=== PATIENT | male | born 1955 | race Two or more races ===

== ENCOUNTER 2021-05-19 06:53 | Emergency (ER) | payer OTHER ==
[~2021-05-19] VITALS: Ht 167.6 cm; Wt 104.3 kg
[2021-05-19] MEDS ORDERED: COZAAR100 MG PO (07:42)
[2021-05-19] MEDS ORDERED: TOPROL XL50 M1 PO (07:42)
[2021-05-19] MEDS ORDERED: LIPITOR20 MG PO (07:43)
== END 2021-05-19 16:02 | disposition home or self-care (01) ==
LOC: ER 06:53 → EDBD 07:45 → ER 07:45
DX: R10.9 Unspecified abdominal pain (principal); Z20.822 Contact with and (suspected) exposure to COVID-19

== ENCOUNTER 2021-05-21 16:53 | Emergency (ER) | payer OTHER ==
[~2021-05-21] VITALS: Ht 167.6 cm; Wt 99.8 kg
[~2021-05-21 16:53] MED LIST: COZAAR100 MG PO; LIPITOR20 MG PO; TOPROL XL50 M1 PO
[2021-05-21] MEDS ORDERED: LEVSIN0.125 MG PO (23:20)
[2021-05-21] MEDS ORDERED: PEPCID AC20 MG PO (23:20)
[2021-05-21] MEDS ORDERED: PERCOCET 5-3251 EACH PO (23:20)
[2021-05-21] MEDS ORDERED: INTESTINEX680 M2 PO (23:20)
== END 2021-05-21 23:03 | disposition home or self-care (01) ==
LOC: ER 16:53 → EDBD 18:17 → ER 23:03
DX: K80.20 Calculus of gallbladder without cholecystitis without obstruction (principal); K57.90 Diverticulosis of intestine, part unspecified, without perforation or abscess without bleeding; R10.84 Generalized abdominal pain; R11.2 Nausea with vomiting, unspecified

== ENCOUNTER 2021-05-23 13:05 | Inpatient (IN) | payer OTHER ==
[~2021-05-23] VITALS: Ht 167.6 cm; Wt 104.3 kg
[~2021-05-23 13:05] MED LIST changes: +INTESTINEX680 M2 PO; +LEVSIN0.125 MG PO; +PEPCID AC20 MG PO; +PERCOCET 5-3251 EACH PO
[2021-05-27] MEDS ORDERED: WARFARIN SODIUM5 MG (07:55)
[2021-05-27] MEDS ORDERED: BACLOFEN20 MG (07:55)
[2021-05-27] MEDS ORDERED: FLONASE16 GM (07:56)
[2021-05-30] MEDS ORDERED: CIPRO500 MG PO (14:38)
[2021-05-30] MEDS ORDERED: INTESTINEX680 M1 PO (14:38)
[2021-05-30] MEDS ORDERED: FLAGYL500MG PO (14:38)
== END 2021-05-30 15:36 | disposition home or self-care (01) | DRG 446 ==
LOC: ER 13:05 → SEC-K 05-24 13:49 → MEDJ 05-24 13:49 → EDBD 05-24 13:49 → SEC-K 05-24 16:06 → MEDJ 05-25 17:48
PROVIDERS: ADMIT Internal Medicine; ATTEND Internal Medicine
PROC: BW40ZZZ Ultrasonography of Abdomen (ICD-10-PCS; principal; 2021-05-24)
PROC: B24BZZZ Ultrasonography of Heart with Aorta (ICD-10-PCS; 2021-05-24)
PROC: 8E0ZXY6 Isolation (ICD-10-PCS; 2021-05-24)
DX: K80.10 Calculus of gallbladder with chronic cholecystitis without obstruction (principal); D69.6 Thrombocytopenia, unspecified; E78.49 Other hyperlipidemia; Z79.01 Long term (current) use of anticoagulants; Z20.822 Contact with and (suspected) exposure to COVID-19; L80 Vitiligo; E66.8 Other obesity; I10 Essential (primary) hypertension